=== PATIENT | female | born 1995 | race Caucasian/White ===

== ENCOUNTER 2021-04-16 23:55 | Emergency (ER) | payer SELFPAY ==
[2021-04-17 00:09] VITALS: BP 132/85; PULSE 83; TEMP 97.2; BMI 34.0
[2021-04-17] MEDS ORDERED: diazePAM 5 MG TABLET PO ONE (00:35)
[2021-04-17] MEDS ORDERED: LIDOCAINE 5% TOPICAL PATCH TP ONE (00:35)
[2021-04-17] MEDS ORDERED: KETOROLAC TROMETHAMINE 30 MG/1 ML VIAL IM ONE (00:35)
[2021-04-17] MEDS ORDERED: diazePAM 5 MG TABLET ONE (00:38)
[2021-04-17] MEDS ORDERED: LIDOCAINE 5% TOPICAL PATCH ONE (00:38)
[2021-04-17] MEDS ORDERED: KETOROLAC TROMETHAMINE 30 MG/1 ML VIAL ONE (00:38)
[2021-04-17] MEDS ORDERED: LIDOCAINE PATCH REMOVAL MC SCH (22:00)
== END 2021-04-17 02:10 | disposition home or self-care (01) ==
LOC: JER 23:55
PROC: 3E023GC Introduction of Other Therapeutic Substance into Muscle, Percutaneous Approach (ICD-10-PCS; principal; 2021-04-16)
DX: M62.838 Other muscle spasm (principal)
CPT/HCPCS: 99284-25